=== PATIENT | male | born 1950 | race Caucasian/White ===

== ENCOUNTER → 2017-06-25 | Outpatient (CLI) | payer BC, MEDICARE ==
[~2017-06-25] MED LIST: ASPI-757 PO; ATOR40TA24 PO; EXEN2PEN INJ; FISH1CAP15 PO; GLIP1TAB PO; GLUC-198 PO; INSU300I INJ; METO25TA93 PO; METXR500 PO; SIMV-44 PO; SITA100T PO; UBID100C9 PO; VITA1CAP46 PO
--- NOTE | 2017-06-25 13:17 | RADIOLOGY IMAGING REPORT ---
FACILITY: [facility] PATIENT NAME: Miguelangel Merchant : 1950 MR: [id number] V: [id number] EXAM DATE: ORDERING PHYSICIAN: SHAHEEN INMAN TECHNOLOGIST: Location: [facility] - [place] Patient: Miguelangel Merchant : 1950 Visit/Account:[id number] Date of Sevice: 06/25/2017 EXAMINATION: CT ABDOMEN AND PELVIS WITHOUT CONTRAST COMPARISON: None. HISTORY: Abdomen pain for one week. PROCEDURE: Multiplanar noncontrast CT of the abdomen and pelvis. One of the following dose optimizati on techniques was utilized in the performance of this exam: Automated exposure control; adjustment of the mA and/or kV according to the patient's size; or use of an iterative reconstruction technique. Specific details can be referenced in the facility's radiology CT exam operational policy. FINDINGS: Evaluation of the solid and viscus parenchymal organs and vascular structures is limited wi thout the benefit of IV contrast. Visualized thorax: No acute findings. Right coronary calcification versus coronary stent. Liver: Noncontrast imaging of the visualized liver is within normal limits. Gallbladder and biliary system: Negative Spleen: Negative. Pancreas: Noncontrast imaging of the pancreas is within normal limits. Adrenal glands: Negative. Kidneys and bladder: No radiopaque urolithiasis or evidence of an obstructive uropathy. Urinary blad vivek is unremarkable. Vessels: Moderate aortoiliac atherosclerosis. No aneurysm. Bowel and mesentery: Stomach is within normal limits. No small bowel obstruction. Appendix is unremar kable. Small amount of liquid stool in the colon. Distal descending colon and sigmoid colon mild dive rticulosis. No bowel or mesenteric inflammation. Pelvic organs: Negative. Lymph nodes: No adenopathy. Free air/free fluid: None. Abdominal wall and osseous structures: No acute changes. Mild degenerative change throughout the visu alized spine. L5 chronic bilateral pars defects; no associated spondylolisthesis. IMPRESSION: 1. No noncontrast CT findings of acute disease in the abdomen or pelvis. 2. Chronic findings as described above. Results were discussed with SHAHEEN INMAN at 06/25/2017 1:12 PM. Report Dictated By: Miguelangel Lance MD at 06/25/2017 1:01 PM Report E-Signed By: Miguelangel Lance MD at 06/25/2017 1:13 PM WSN:[id number]
== END ==
LOC: CT 12:24
PROVIDERS: ATTEND Nurse Practitioner Family
DX: I25.10 Atherosclerotic heart disease of native coronary artery without angina pectoris (principal)
CPT/HCPCS: 74176

== ENCOUNTER → 2017-06-25 | Outpatient (REF) | payer BC, MEDICARE ==
[2017-06-25 11:22] LABS: PLATELET COUNT, AUTOMATED 286 K/uL (150-450)
== END ==
PROVIDERS: ATTEND Nurse Practitioner Family
DX: R10.9 Unspecified abdominal pain (principal)
CPT/HCPCS: 82040; 82247; 82310; 82374; 82435; 82565; 82947; 84075; 84132; 84155; 84295; 84450; 84460; 84520; 85025